=== PATIENT | female | born 1985 | race African-American/Black ===

== ENCOUNTER 2018-09-30 10:14 | Outpatient (CLI) | payer MEDICAID ==
[~2018-09-30] VITALS: Ht 165.1 cm; Wt 87.7 kg
[2018-09-30] VITALS (26 sets, daily range): BP systolic 128–223; BP diastolic 84–139; PULSE 80–126; TEMP 98.5–98.7
--- NOTE | 2018-09-30 10:10 | NUR ---
1000- This RN received call from ED charge nurse, Brittni stating they have a Pt that is 33 weeks that has BP approxiately 125/110, Pt has right sided facial numbness and drooping, had since Sunday. This RN requests for Pt to be brought to unit [facility]. 1010- Pt arrives on unit via wheelchair, brought to LR1. Brittni, RN reports they started and IV in Left AC, labs obtained, verified and handed off to this RN. Pt transfers to bed independently. Pt states she noticed right-sided facial numbness and inability to move eyebrow and mouth on that side. She came in to day because it is now painful. Pt states she has Pre-Ecclampsia with this and is taking 100mg Labetalol BID, last at 2200 last night. States she is a G5L5, with one set of twins. Pt is very anxious and stressed, difficult to hold conversation with Pt.
[2018-09-30] MEDS ORDERED: PRENATA1 CTB PO (10:29)
[2018-09-30] MEDS ORDERED: TYLENOL 325MG325 MG PO (10:29)
[2018-09-30] MEDS ORDERED: TRANDATE 100MG100 MG PO (10:29)
--- NOTE | 2018-09-30 10:48 | NUR ---
1039- Dr. Garcia at bedside to assess patient. Reviews BPs since admission. Orders to transport to CT. 1046- Patient taken off E[facility] and transported to CT with 2 RNs. 1055- BP checked prior to CT scan. CT scan completed. 1058- BP checked following scan. Patient transported to L&D.
[2018-09-30 10:59] LABS: BASO % 0.4 % (0.0-2.0); EOS # 0.1 (0.0-0.7); GRAN # 2.8 (1.4-6.5); GRAN % 59.3 % (42.2-75.2); HEMOGLOBIN 10.9 g/dl (12.5-16.0); LYMPH # 1.5 (1.2-3.4); LYMPH % 32.2 % (20.0-51.0); MEAN CELL VOLUME 91 fl (80.0-100.0); MEAN CORPUSCULAR HEMOGLOBIN 29 pg (27.0-31.0); MEAN CORPUSCULAR HGB CONC 32 g/dl (33.0-37.0); MEAN PLATELET VOLUME 10.6 fl (7.4-10.4); MONO # 0.3 (0.1-0.6); MONO % 6.7 % (1.7-9.3); PLATELET COUNT 185 K/mm3 (130-400); RED BLOOD COUNT 3.81 M/mm3 (4.10-5.30); REDCELL DISTRIBUTION WIDTH-CV 15.7 % (11.5-14.5)
[2018-09-30 11:05] LABS: HEMATOCRIT 34.5 % (37.0-47.0)
[2018-09-30 11:10] LABS: ALANINE AMINOTRANSFERASE < 6 U/L (9-52); ALBUMIN 3.1 gm/dL (3.5-5.0); ALKALINE PHOSPHATASE 118 U/L (50-136); ANION GAP 7 mmol/L (7-16); AST,SGOT 28 U/L (15-37); BILIRUBIN,TOTAL 0.2 mg/dL (0.0-1.0); BLOOD UREA NITROGEN 7 mg/dL (7-17); CALCIUM 8.8 mg/dL (8.4-10.2); CARBON DIOXIDE 21 mmol/L (22-30); CHLORIDE 107 mmol/L (98-107); CREATININE, serum 0.77 (0.52-1.25); GLUCOSE 107 mg/dL (74-106); POTASSIUM 3.2 mmol/L (3.4-5.0); SODIUM 135 mmol/L (137-145); TOTAL PROTEIN 6.7 gm/dL (6.4-8.2)
--- NOTE | 2018-09-30 11:10 | NUR ---
Patient back in bed. Dr. Garcia at bedside. Dr. Garcia reviews with patient her hx from records received. Dr. Garcia asks patient about use of cocaine in this . Patient denies use of cocaine and any drug use recently. After Dr. Garcia left patient admits to this RN that she was lying and that she smoked marijuana in the past few days. Patients significant other very distraught and upset about hearing about patient past drug use. Patient and significant other arguing and both tearful.
[2018-09-30 11:23] LABS: COLLECTION METHOD CATHETER
[2018-09-30 11:32] LABS: MUCOUS Present /lpf; PH 6 (5-8); URINE APPEARANCE Hazy; URINE BACTERIA Rare /hpf; URINE BILIRUBIN Negative (NEGATIVE); URINE BLOOD 2+ (NEGATIVE); URINE COLOR Yellow; URINE GLUCOSE Negative (NEGATIVE); URINE KETONE Negative (NEGATIVE); URINE LEUKOCYTE ESTERASE Negative (NEGATIVE); URINE NITRATE Negative (NEGATIVE); URINE PROTEIN(semi-quant) 2+ (NEGATIVE); URINE UROBILINOGEN Negative (NEGATIVE)
[2018-09-30 11:42] LABS: TRICYCLIC ANTIDEPRESS URINE NEGATIVE
--- NOTE | 2018-09-30 12:47 | NUR ---
Patient updated on plan of care. Patient sleeping between disturbances.
--- NOTE | 2018-09-30 13:15 | NUR ---
Continuous audible movement noted. Difficulty tracing FHR continuously. RN remains at bedside adjusting monitor. Patient watching TV.
--- NOTE | 2018-09-30 14:50 | NUR ---
Dr. Garcia on unit. Reviews BPs and patient assessment, reviewed consult with hospitalist. Orders to hold antihypertensive medications and give Potassium supplement as ordered. Report to Terri Girard RN.
--- NOTE | 2018-09-30 15:55 | NUR ---
FHR baseline 135bpm. 1555: FHR Tracing maternal heart rate at this time due to patient sitting forward. Patient uncomfortable and moving around and difficult to trace FHR. Monitor adjusted. Patient moving from side to side. 1700: Patient left lateral and resting and diffuculty tracing FHR. monitor adjusted. 1748: Patient off monitor and changing into clothes. 1755: Patient and significant other given discharge instructions. Patient verbalizes understanding and signs discharge papers. IV removed and patient tolerates well. 1800: Patient ambulatory off unit with significant other.
[2018-09-30] MEDS ORDERED: PREDNISONE20 MG PO (16:18)
[2018-09-30] MEDS ORDERED: VALTREX1 GM PO (16:18)
[2018-09-30] MEDS ORDERED: ARTIFICIAL TEAR15 M7 OP (16:19)
--- NOTE | 2018-10-01 10:03 | NUR ---
Patient presented for medical complications and is 33 weeks . Her OB physician is in [place]. Patient tested positive for cocaine. Worker filed a DCF report and faxed positive drug results to [facility]. Report #[id number]. Patient was discharged home.
== END 2018-09-30 18:00 | disposition home or self-care (01) ==
LOC: LDRO 10:14 → EDSTATUS 10:15 → LDR 15:41 → LDRO 18:00
PROVIDERS: Obstetrics & Gynecology
DX: O99.89 Other specified diseases and conditions complicating pregnancy, childbirth and the puerperium (principal); H53.9 Unspecified visual disturbance; R29.810 Facial weakness; R51 Headache; Z3A.33 33 weeks gestation of pregnancy
CPT/HCPCS: OP; 99222; J0360; J7512

== ENCOUNTER → 2021-09-26 | Outpatient (CLI) | payer MEDICAID ==
[~2021-09-26] MED LIST: ARTIFICIAL TEAR15 M7 OP; PREDNISONE20 MG PO; PRENATA1 CTB PO; TRANDATE 100MG100 MG PO; TYLENOL 325MG325 MG PO; VALTREX1 GM PO
== END ==
LOC: COL.RAD 09-20 09:15
DX: C50.511 Malignant neoplasm of lower-outer quadrant of right female breast (principal)
CPT/HCPCS: A9503